=== PATIENT | male | born 1955 | race Caucasian/White ===

== ENCOUNTER 2024-03-15 11:26 | Day surgery (SDC) | payer OTHER ==
[~2024-03-15] VITALS: Ht 177.8 cm; Wt 139.5 kg
[~2024-03-15 11:26] MED LIST: Lactated Ringer's 1,000 ML IV ONE; propofoL 50 ML IV ONE
[2024-03-15] MEDS ORDERED: LISI20 (11:44)
[2024-03-15] MEDS ORDERED: ALLO300 (11:44)
[2024-03-15] MEDS ORDERED: Altoprev60 MG (11:44)
[2024-03-15] MEDS ORDERED: EUTHYROX175 MCG (11:44)
[2024-03-15 11:57] VITALS: BP 146/107
[2024-03-15] MEDS ORDERED: Lactated Ringer's 1,000 ML IV ONE (12:20)
--- NOTE | 2024-03-15 13:50 | NUR ---
03/15/24 1350 Jeanne Andrews PT CANCELLED BY ANESTHESIA DUE TO ASCENDING AORTA ANEURYSM THAT HAS NOT HAD A FOLLOW UP WITH CARDIOLOGY SINCE 11/2022. PER CARDIOLOGY VISIT DATED 11/2022 PT WOULD NEED FOLLOW UP EKG AND ECHO IN 1 YEAR. THIS HAS NOT BEEN DONE. PT INFORMED OF CANCELLATION BY DR. SHAW. PT VERY UNDERSTANDING AND HIS IV WAS DC'D AND PT DISCHARGED HOME. PT LEFT ORS AT 1330.
== END 2024-03-15 13:30 | disposition home or self-care (01) ==
LOC: ORSCSDS 11:26
DX: Z86.0101 Personal history of adenomatous and serrated colon polyps (principal); Z53.9 Procedure and treatment not carried out, unspecified reason
CPT/HCPCS: J2704; J7120

== ENCOUNTER 2024-08-18 10:06 | Day surgery (SDC) | payer OTHER ==
[~2024-08-18] VITALS: Ht 177.8 cm; Wt 125.6 kg
[~2024-08-18 10:06] MED LIST changes: +ALLO300; +Altoprev60 MG; +EUTHYROX175 MCG; +LISI20; -propofoL 50 ML IV ONE
[2024-08-18] MEDS ORDERED: QSYMIA 7.5 MG-1 EAC1 (10:30)
[2024-08-18] MEDS ORDERED: propofoL 50 ML IV ONE (10:46)
[2024-08-18] MEDS ORDERED: Lactated Ringer's 1,000 ML IV ONE (10:48)
[2024-08-18 12:11] VITALS: BP 110/69
== END 2024-08-18 12:02 | disposition home or self-care (01) ==
LOC: ORSCSDS 10:06
PROVIDERS: Specialist
PROC: 0DBH8ZX Excision of Cecum, Via Natural or Artificial Opening Endoscopic, Diagnostic (ICD-10-PCS; principal; 2024-08-18 11:30)
PROC: 0DBK8ZX Excision of Ascending Colon, Via Natural or Artificial Opening Endoscopic, Diagnostic (ICD-10-PCS; principal; 2024-08-18 11:30)
PROC: 0DBN8ZX Excision of Sigmoid Colon, Via Natural or Artificial Opening Endoscopic, Diagnostic (ICD-10-PCS; principal; 2024-08-18 11:30)
DX: Z12.11 Encounter for screening for malignant neoplasm of colon (principal); Z86.0101 Personal history of adenomatous and serrated colon polyps; D12.5 Benign neoplasm of sigmoid colon; D12.0 Benign neoplasm of cecum; D12.2 Benign neoplasm of ascending colon; K64.8 Other hemorrhoids; K57.30 Diverticulosis of large intestine without perforation or abscess without bleeding; I10 Essential (primary) hypertension; M10.9 Gout, unspecified; E78.5 Hyperlipidemia, unspecified; G47.33 Obstructive sleep apnea (adult) (pediatric); E07.9 Disorder of thyroid, unspecified; E66.01 Morbid (severe) obesity due to excess calories; Z68.39 Body mass index [BMI] 39.0-39.9, adult; Z87.891 Personal history of nicotine dependence; Z79.899 Other long term (current) drug therapy
CPT/HCPCS: 88305; J2704; J7120